=== PATIENT | male | born 1935 | race Caucasian/White ===

== ENCOUNTER 2016-12-07 06:17 | Day surgery (SDC) | payer OTHER ==
[2016-12-06 08:58] VITALS: BP 143/84
[2016-12-06 09:45] LABS: ASPARTATE AMINO TRANSFERASE 20 U/L (15-37); BLOOD UREA NITROGEN 18 mg/dL (7-18)
[~2016-12-07] VITALS: Ht 193 cm; Wt 99.0 kg
[~2016-12-07 06:17] MED LIST: DOXA2TAB9 PO; LOSA1TAB16 PO; LOSA1TAB17 PO; LOSA50TA6 PO; LOVA40TA2 PO; MAGNESIUM PO; METF500T4 PO; OMEG-14 PO; RIVA20TA PO; VITA1TAB3 PO; WARF5TAB PO; WARF7.5T PO
[2016-12-07] MEDS ORDERED: LACTATED RINGERS 1,000 ML IV SCH (07:20)
[2016-12-07 07:24] VITALS: BP 143/84
[2016-12-07] MEDS ORDERED: MIDAZOLAM 1 MG/ML, 2ML IV PRN (09:00)
[2016-12-07] MEDS ORDERED: ACETAMINOPHEN 325 MG TABLET PO PRN (09:00)
[2016-12-07] MEDS ORDERED: HYDROmorphone 1 MG/ML, 1ML IV PRN (09:00)
[2016-12-07] MEDS ORDERED: FENTANYL PF 100 MCG/2ML IV PRN (09:00)
[2016-12-07] MEDS ORDERED: OXYcodone 5 MG/5 ML ORAL.SOL UDC PO PRN (09:00)
[2016-12-07] MEDS ORDERED: LABETALOL 5MG/ML, 20ML IV PRN (09:00)
[2016-12-07] MEDS ORDERED: MEPERIDINE/PF 25MG/0.5ML IVPush PRN (09:00)
[2016-12-07] MEDS ORDERED: PROMETHAZINE 25 MG/ML, 1ML IV PRN (09:00)
[2016-12-07] MEDS ORDERED: hydrALAzine 20 MG/ML, 1ML IV PRN (09:00)
[2016-12-07] MEDS ORDERED: ONDANSETRON 2MG/ML, 2ML IVPush PRN (09:00)
[2016-12-07] MEDS ORDERED: PROPOFOL 10 MG/ML, 50ML ONE (10:56)
[2016-12-07] MEDS ORDERED: EPHEDRINE 50 MG/ML, 1ML ONE (10:56)
== END 2016-12-07 10:25 | disposition home or self-care (01) ==
LOC: OUT 06:17
PROVIDERS: ATTEND Internal Medicine Gastroenterology
DX: K62.89 Other specified diseases of anus and rectum (principal); I10 Essential (primary) hypertension; E11.9 Type 2 diabetes mellitus without complications; I48.91 Unspecified atrial fibrillation; Z95.0 Presence of cardiac pacemaker; E78.5 Hyperlipidemia, unspecified; J44.9 Chronic obstructive pulmonary disease, unspecified; Z86.010 Personal history of colon polyps; Z86.73 Personal history of transient ischemic attack (TIA), and cerebral infarction without residual deficits; Z87.891 Personal history of nicotine dependence
CPT/HCPCS: 36415; 45331; 45341; 80053; 82962; 88172; 88305; 93005; J2704; J7120

== ENCOUNTER → 2018-07-11 | Outpatient (CLI) | payer OTHER ==
[~2018-07-11] MED LIST changes: +CHOL2000 PO; -LOSA1TAB16 PO; -LOSA1TAB17 PO; +LOSA1TAB19 PO; +LOSA1TAB22 PO; -LOSA50TA6 PO; +LOSA50TA7 PO; +MAGN100T3 PO; +METF500T17 PO; -METF500T4 PO
[2018-07-11 10:23] LABS: ALANINE AMINOTRANSFERASE 30 U/L (12-78); ANION GAP 9 mmol/L (5-15); CALCIUM 9.4 mg/dL (8.5-10.1); CHLORIDE 107 mmol/L (98-107); CREATININE 1.26 mg/dL (0.7-1.3)
[2018-07-11 10:25] LABS: ALKALINE PHOSPHATASE 73 U/L (45-117); BILIRUBIN,TOTAL 1.1 mg/dL (0.2-1.0); TOTAL PROTEIN 7.1 g/dL (6.4-8.2)
== END | disposition home or self-care (01) ==
LOC: STAR 09:11
PROVIDERS: ATTEND Specialist
DX: Z01.818 Encounter for other preprocedural examination (principal); C44.310 Basal cell carcinoma of skin of unspecified parts of face; L98.9 Disorder of the skin and subcutaneous tissue, unspecified; Z79.01 Long term (current) use of anticoagulants
CPT/HCPCS: 36415; 80053; 93005

== ENCOUNTER 2018-07-16 05:33 | Day surgery (SDC) | payer OTHER ==
[2018-07-11 10:19] VITALS: BP 167/99
[~2018-07-16] VITALS: Ht 193 cm; Wt 101.4 kg
[2018-07-16] MEDS ORDERED: LACTATED RINGERS 1,000 ML IV SCH (06:00)
[2018-07-16 06:03] VITALS: BP 167/99
[2018-07-16] MEDS ORDERED: LIDOCAINE/PF 1%, 30ML ONE (06:20)
[2018-07-16] MEDS ORDERED: EPINEPHRINE 1 MG/ML, 1ML ONE (06:20)
[2018-07-16] MEDS ORDERED: MIDAZOLAM 1 MG/ML, 2ML ONE (06:43)
[2018-07-16] MEDS ORDERED: FENTANYL PF 250 MCG/5ML ONE (06:43)
[2018-07-16] MEDS ORDERED: METOCLOPRAMIDE 5 MG/ML, 2ML ONE (07:25)
[2018-07-16] MEDS ORDERED: VASOPRESSIN 20 UNIT/ML, 1ML ONE (07:25)
[2018-07-16] MEDS ORDERED: PROPOFOL 10 MG/ML, 20ML ONE ×2 (07:25→08:09)
[2018-07-16] MEDS ORDERED: GLYCOPYRROLATE 0.2MG/1ML, 5ML ONE (07:25)
[2018-07-16] MEDS ORDERED: NEOSTIGMINE 1 MG/ML, 10ML ONE (07:25)
[2018-07-16] MEDS ORDERED: CEFAZOLIN 1,000 MG ONE (07:27)
[2018-07-16] MEDS ORDERED: NEOSPORIN OINT. PKT 1 PACKET ONE ×2 (08:09→09:00)
[2018-07-16] MEDS ORDERED: ONDANSETRON 2MG/ML, 2ML ONE (08:09)
[2018-07-16] MEDS ORDERED: PHENYLEPHRINE 10 MG/ML ONE (08:09)
[2018-07-16] MEDS ORDERED: DEXAMETHASONE 4 MG/ML, 1ML ONE (08:09)
[2018-07-16] MEDS ORDERED: LIDOCAINE 2% 100MG/5ML SYRINGE ONE (08:09)
[2018-07-16] MEDS ORDERED: ROCURONIUM 10MG/ML,5ML ONE (08:09)
[2018-07-16] MEDS ORDERED: HYDROmorphone 1 MG/ML, 1ML IV PRN (08:30)
[2018-07-16] MEDS ORDERED: FENTANYL PF 100 MCG/2ML IV PRN (08:30)
[2018-07-16] MEDS ORDERED: ONDANSETRON 2MG/ML, 2ML IV PRN (08:30)
[2018-07-16] MEDS ORDERED: HALOPERIDOL 5 MG/ML IV PRN (08:30)
[2018-07-16] MEDS ORDERED: ACETAMINOPHEN 325 MG TABLET PO PRN (08:30)
[2018-07-16] MEDS ORDERED: LABETALOL 5MG/ML, 20ML IV PRN (08:30)
[2018-07-16] MEDS ORDERED: MEPERIDINE/PF 25MG/0.5ML IVPush PRN (08:30)
[2018-07-16] MEDS ORDERED: OXYcodone 5 MG/5 ML ORAL.SOL UDC PO PRN (08:30)
[2018-07-16] MEDS ORDERED: hydrALAzine 20 MG/ML, 1ML IV PRN (08:30)
== END 2018-07-16 11:20 | disposition home or self-care (01) ==
LOC: OUT 05:33
PROVIDERS: ATTEND Specialist
DX: C44.319 Basal cell carcinoma of skin of other parts of face (principal); L72.8 Other follicular cysts of the skin and subcutaneous tissue; L57.0 Actinic keratosis; I10 Essential (primary) hypertension; E11.9 Type 2 diabetes mellitus without complications; E78.5 Hyperlipidemia, unspecified; Z79.01 Long term (current) use of anticoagulants; Z88.0 Allergy status to penicillin; Z95.0 Presence of cardiac pacemaker; Z79.899 Other long term (current) drug therapy
CPT/HCPCS: 14040; 82962; 88305; 88331; J0171; J0690; J1100; J2250; J2370; J2405; J2704; J2710; J2765; J3010; J3490; J7120

== ENCOUNTER 2019-01-20 11:05 | Observation (INO) | payer MEDICARE, OTHER ==
[~2019-01-20] VITALS: Ht 193 cm; Wt 103.9 kg
[~2019-01-20 11:05] MED LIST changes: +LOSA50TA14 PO; -LOSA50TA7 PO
[2019-01-20 11:26] LABS: BASOPHILS # (AUTO) 0.02 x10^3/uL (0-0.1); BASOPHILS % (AUTO) 0 % (0-1); EOSINOPHILS # (AUTO) 0.06 x10^3/uL (0-0.4); EOSINOPHILS % (AUTO) 1 % (1-7); LYMPHOCYTES % (AUTO) 22 % (22-44); MD NO; MEAN CORPUSCULAR HEMOGLOBIN 32.3 pg (27.5-34.5); MEAN CORPUSCULAR VOLUME 95.2 fL (81-97); MEAN PLATELET VOLUME 8.5 fL (7.4-10.4); MONOCYTES # (AUTO) 0.54 x10^3/uL (0.2-0.8); MONOCYTES % (AUTO) 7 % (2-9); NEUTROPHILS # (AUTO) 5.47 x10^3/uL (1.8-6.8); NEUTROPHILS % (AUTO) 70 % (42-75); PLATELET COUNT 203 x10^3/uL (130-400); RED BLOOD COUNT 4.33 x10^6/uL (4.38-5.82); RED CELL DISTRIBUTION WIDTH 13.2 % (9.4-14.8)
--- NOTE | 2019-01-20 11:36 | NUR ---
LATE ENTRY: [facility] CALLED AT 11:11. PT PLACED IN ROOM AND BLOOD GLUCOSE DONE--216. PT PLACED ON ZOLL MONITOR AND TAKEN TO CT AT 11:17. WHILE IN CT IV STARTED RIGHT FOREARM 20 GAUGE. PT BACK FROM CT AT 11:33. 11:36- EKG DONE AND PRESENTED TO
--- NOTE | 2019-01-20 11:39 | NUR ---
LATE ENTRY: AT 10:35- PATIENT WAS AT HOME WITH AND PT STARTED SLURRING HIS SPEECH AND UNABLE TO ANSWER QUESTIONS WHEN WAS ASKING HIM QUESTIONS. PT WITH HX: CVA 2013. PT A&OX4 AND ANSWERING QUESTIONS APPROPRIATELY. ASSESSMENT COMPLETED. PT PLACED IN TRAUMA 3 AND PLACED ON BP, CARDIAC AND CONT. PULSE OXIMEER. LAB INTO DRAW PT.
--- NOTE | 2019-01-20 12:00 | NUR ---
PATIENT GIVEN SWALLOW EVAL AND ABLE TO TOLERATE FLUIDS 90 MLS.
--- NOTE | 2019-01-20 12:01 | NUR ---
PT TALKING BETTER NOW AND ABLE TO SAY WORDS BETTER WITHOUT SLURRED SPEECH.
[2019-01-20 12:15] LABS: INTERNATIONAL NORMALIZED RATIO 1.09 (0.93-1.1); PROTHROMBIN TIME 11.4 Seconds (9.6-11.5)
--- NOTE | 2019-01-20 12:20 | NUR ---
pt resting in bed at this time.
--- NOTE | 2019-01-20 12:28 | NUR ---
report called to arik nguyen.
--- NOTE | 2019-01-20 12:33 | NUR ---
gave report to arik nguyen. pt will be transferred to floor .
[2019-01-20 12:37] LABS: MICROSCOPIC NOT IND
[2019-01-20 12:38] LABS: CULTURE INDICATED? NO
[2019-01-20 13:47] VITALS: BP 166/93
[2019-01-20] MEDS ORDERED: ONDANSETRON 4 MG TABLET PO PRN (14:30)
[2019-01-20 15:14] LABS: HEMOGLOBIN A1C 6.3 % (4.2-6.3)
[2019-01-20] MEDS: INSULIN LISPRO 100 UNITS/ML, PEN SQ-INSULIN SCH ×2 (16:56→21:00)
[2019-01-20 19:59] VITALS: BP 170/93
[2019-01-20] MEDS ORDERED: LOVASTATIN 40 MG TABLET PO SCH (21:00)
[2019-01-20] MEDS ORDERED: RIVAROXABAN 20 MG TABLET PO SCH (21:00)
[2019-01-20 22:35] VITALS: BP 155/83
[2019-01-21 02:15] VITALS: BP 152/87
[2019-01-21 05:34] LABS: ALBUMIN 3.9 g/dL (3.4-5.0); ANION GAP 9 mmol/L (5-15); CALCIUM 9.7 mg/dL (8.5-10.1); CHLORIDE 106 mmol/L (98-107)
[2019-01-21 05:38] LABS: ALANINE AMINOTRANSFERASE 24 U/L (12-78); ALKALINE PHOSPHATASE 73 U/L (45-117); BILIRUBIN,TOTAL 1.2 mg/dL (0.2-1.0); CHOL/HDL RATIO 2.7; CHOLESTEROL, TOTAL 144 mg/dL (140-239); CREATININE 1.33 mg/dL (0.7-1.3); HDL CHOL % 37 % (26-37); HDL CHOLESTEROL (DIRECT) 53 mg/dL (40-60); LDL CHOLESTEROL,CALCULATED 74 mg/dL (54-169); LDL/HDL RATIO 1.4 (0.5-3.0); TOTAL PROTEIN 6.9 g/dL (6.4-8.2); TRIGLYCERIDES 85 mg/dL (50-200); VLDL CHOLESTEROL 17 mg/dL (0-25)
[2019-01-21 05:41] LABS: BASOPHILS # (AUTO) 0.02 x10^3/uL (0-0.1); BASOPHILS % (AUTO) 0 % (0-1); EOSINOPHILS # (AUTO) 0.09 x10^3/uL (0-0.4); EOSINOPHILS % (AUTO) 1 % (1-7); LYMPHOCYTES # (AUTO) 2.22 x10^3/uL (1-3.4); LYMPHOCYTES % (AUTO) 29 % (22-44); MD NO; MEAN CORPUSCULAR HEMOGLOBIN 32.4 pg (27.5-34.5); MEAN CORPUSCULAR HGB CONC 34.4 g/dL (33.2-36.2); MEAN CORPUSCULAR VOLUME 94.3 fL (81-97); MEAN PLATELET VOLUME 8.6 fL (7.4-10.4); MONOCYTES # (AUTO) 0.59 x10^3/uL (0.2-0.8); MONOCYTES % (AUTO) 8 % (2-9); NEUTROPHILS # (AUTO) 4.83 x10^3/uL (1.8-6.8); NEUTROPHILS % (AUTO) 62 % (42-75); PLATELET COUNT 182 x10^3/uL (130-400); RED BLOOD COUNT 4.52 x10^6/uL (4.38-5.82); RED CELL DISTRIBUTION WIDTH 13.1 % (9.4-14.8)
[2019-01-21 05:55] VITALS: BP 148/85
[2019-01-21] MEDS: INSULIN LISPRO 100 UNITS/ML, PEN SQ-INSULIN SCH ×3 (08:41→16:00)
[2019-01-21] MEDS ORDERED: DOXAZOSIN 2MG TABLET PO SCH (09:00)
[2019-01-21] MEDS ORDERED: CHOLECALCIFEROL 1,000 UNIT TABLET PO SCH (09:00)
[2019-01-21] MEDS ORDERED: ASPIRIN 81 MG TABLET CHEW PO/NG SCH (09:00)
[2019-01-21 15:39] VITALS: BP 180/95
[2019-01-21 16:40] VITALS: BP 174/92
== END 2019-01-21 18:00 | disposition home or self-care (01) ==
LOC: ED 12:05 → 4EST 12:06 → INTOOBSV 12:06 → ED 12:18
PROVIDERS: ADMIT Internal Medicine; ATTEND Internal Medicine
DX: I48.2 Chronic atrial fibrillation (principal); I11.0 Hypertensive heart disease with heart failure; I50.42 Chronic combined systolic (congestive) and diastolic (congestive) heart failure; D68.69 Other thrombophilia; E78.5 Hyperlipidemia, unspecified; E11.9 Type 2 diabetes mellitus without complications; R47.01 Aphasia; Z79.84 Long term (current) use of oral hypoglycemic drugs; Z79.01 Long term (current) use of anticoagulants; Z86.73 Personal history of transient ischemic attack (TIA), and cerebral infarction without residual deficits; Z87.891 Personal history of nicotine dependence; Z85.828 Personal history of other malignant neoplasm of skin; Z88.0 Allergy status to penicillin; Z95.0 Presence of cardiac pacemaker
CPT/HCPCS: 36415; 70450; 70496; 70498; 80047; 80053; 80061; 81003; 82962; 83036; 84484; 85025; 85610; 85730; 92523; 93005; 93306; 96372; 97161; 97165; 99291; G0378; J1815